=== PATIENT | male | born 1960 | race Caucasian/White ===

== ENCOUNTER 2022-10-04 18:54 | Emergency (ER) | payer OTHER, BC ==
[~2022-10-04] VITALS: Ht 185.4 cm; Wt 90.9 kg
[2022-10-04 19:06] VITALS: BP 159/99
[2022-10-04 19:15] VITALS: BP 170/105
[2022-10-04 19:30] VITALS: BP 158/100
[2022-10-04] MEDS ORDERED: ASPIRIN 81 LOW81 MG PO (19:42)
[2022-10-04] MEDS ORDERED: LIPITOR20 M1 PO (19:42)
[2022-10-04 22:35] VITALS: BP 158/99
== END 2022-10-04 22:45 | disposition home or self-care (01) | DRG 563 ==
LOC: ED 18:54
DX: S63.502A Unspecified sprain of left wrist, initial encounter (principal); S13.4XXA Sprain of ligaments of cervical spine, initial encounter; V29.408A Other motorcycle driver injured in collision with unspecified motor vehicles in traffic accident, initial encounter; S80.01XA Contusion of right knee, initial encounter; I25.2 Old myocardial infarction; I25.10 Atherosclerotic heart disease of native coronary artery without angina pectoris; Z95.5 Presence of coronary angioplasty implant and graft; E78.5 Hyperlipidemia, unspecified